=== PATIENT | male | born 1970 | race Caucasian/White ===

== ENCOUNTER 2018-05-07 19:37 | Emergency (ER) | payer MEDICAID ==
[~2018-05-07] VITALS: Ht 167.6 cm; Wt 64.5 kg
[2018-05-07] MEDS ORDERED: HYDROcodone/APAP 5/325 TABLET ONE (21:56)
[2018-05-07] MEDS ORDERED: HYDROcodone/APAP 5/325 TABLET PO ONE (22:00)
[2018-05-08 00:10] VITALS: BP 145/103
== END 2018-05-08 00:14 | disposition home or self-care (01) ==
LOC: ED 22:43
DX: S02.82XA Fracture of other specified skull and facial bones, left side, initial encounter for closed fracture (principal); H11.32 Conjunctival hemorrhage, left eye; I10 Essential (primary) hypertension; F17.210 Nicotine dependence, cigarettes, uncomplicated; Y04.8XXA Assault by other bodily force, initial encounter; Y93.89 Activity, other specified; Y99.8 Other external cause status; Y92.89 Other specified places as the place of occurrence of the external cause
CPT/HCPCS: 70450; 70486; 99284